=== PATIENT | female | born 1950 | race Caucasian/White ===

== ENCOUNTER 2018-01-10 11:09 | Emergency (ER) | payer MEDICARE ==
--- NOTE | 2018-01-10 12:54 | ED ---
Abdominal Pain HPI - General Chief Complaint: Abdominal Pain Stated Complaint: CONSTIPATION Time Seen by Provider: 01/10/18 12:25 Source: patient, RN notes reviewed, old records reviewed Mode of arrival: ambulatory Limitations: no limitations - History of Present Illness Initial Comments: Patient is a 67-year-old female presents emergency Department chief complaint of constipation. She reports she cannot last time she had a bowel movement. Patient states that she used to magnesium citrate bottles at home this week and reports that she's only had clear or watery stool. Patient states that she feels like there is some vague obstructing. Patient reports that she has had no vomiting. Denies any significant abdominal pain with this. She reports she has has a lower pressure. Denies any urinary symptoms. No fevers or chills. - Related Data Home Medications Medication Instructions Recorded Confirmed ALPRAZolam [Xanax] 1 mg PO QID PRN 01/10/18 01/10/18 DULoxetine HCL [Cymbalta] 120 mg PO DAILY 01/10/18 01/10/18 Hydrochlorothiazide [Hydrodiuril] 25 mg PO DAILY 01/10/18 01/10/18 Pravastatin Sodium [Pravachol] 40 mg PO HS 01/10/18 01/10/18 QUEtiapine FUMARATE [SEROquel] 200 mg PO HS 01/10/18 01/10/18 metFORMIN HCL ER [Glucophage Xr] 500 mg PO DAILY 01/10/18 01/10/18 Previous Rx's Medication Instructions Recorded Bisacodyl [Dulcolax] 10 mg PO ONCE #20 tablet. 01/10/18 Polyethylene Glycol 3350 [Miralax] 17 gm PO DAILY #30 packet 01/10/18 Allergies Allergy/AdvReac Type Severity Reaction Status Date / Time No Known Allergies Allergy Verified 01/10/18 12:55 Review of Systems ROS Statement: Those systems with pertinent positive or pertinent negative responses have been documented in the HPI. ROS Other: All systems not noted in ROS Statement are negative. Past Medical History Past Medical History: Asthma, Diabetes Mellitus, Hypertension History of Any Multi-Drug Resistant Organisms: None Reported Past Surgical History: Hysterectomy, Joint Replacement Additional Past Surgical History / Comment(s): neck surgery Past Psychological History: Depression Smoking Status: Former smoker Past Alcohol Use History: None Reported Past Drug Use History: None Reported General Exam - General Exam Comments Initial Comments: Well-appearing alert and oriented 67-year-old female. No acute distress. Limitations: no limitations General appearance: alert, in no apparent distress Head exam: Present: atraumatic, normocephalic, normal inspection Eye exam: Present: normal appearance, PERRL, EOMI. Absent: scleral icterus, conjunctival injection, periorbital swelling ENT exam: Present: normal exam, mucous membranes moist Neck exam: Present: normal inspection. Absent: tenderness, meningismus, lymphadenopathy Respiratory exam: Present: normal lung sounds bilaterally. Absent: respiratory distress, wheezes, rales, rhonchi, stridor Cardiovascular Exam: Present: regular rate, normal rhythm, normal heart sounds. Absent: systolic murmur, diastolic murmur, rubs, gallop, clicks GI/Abdominal exam: Present: soft, normal bowel sounds. Absent: distended, tenderness, guarding, rebound, rigid Rectal exam: Present: normal inspection, normal rectal tone, other (No evidence of fecal impaction.). Absent: fecal impaction Extremities exam: Present: normal inspection, full ROM, normal capillary refill. Absent: tenderness, pedal edema, joint swelling, calf tenderness Back exam: Present: normal inspection Neurological exam: Present: alert, oriented X3, CN II-XII intact Course Vital Signs 01/10/18 01/10/18 11:14 15:31 Temperature 98.0 F 98.1 F Pulse Rate 80 74 Respiratory 20 17 Rate Blood Pressure 129/66 127/82 O2 Sat by Pulse 100 100 Oximetry Medical Decision Making - Medical Decision Making 67-year-old female presents to respond to bleed and pass patient. She feels that there is something obstructing. Had to magnesium citrate at home and feels like she is just passing stool around the hard stool. X-ray was completed. No acute bowel gas pattern. Patient still concerned about the constipation. Discussed he can do here back enema. I also on digital rectal exam did not feel any concern for fecal impaction. She had a molasses enema. She did have some bowel movement but is just watery. Discussed at this time we can put the patient on miralax daily and use daily stool softeners. She needs to follow-up with her PCP. Discussed that I have no significant evidence for fecal impaction or severe constipation this time. Disposition Clinical Impression: Constipation Disposition: HOME SELF-CARE Condition: Good Instructions: Constipation (ED), Obstipation (ED) Additional Instructions: Patient advised follow-up with primary care provider. Continue with MiraLAX and stool softener. Return to the emergency department if any alarming signs or symptoms occur. Prescriptions: Bisacodyl [Dulcolax] 10 mg PO ONCE #20 tablet. Polyethylene Glycol 3350 [Miralax] 17 gm PO DAILY #30 packet Is patient prescribed a controlled substance at d/c from ED?: No If prescribed controlled substance>3 days was MAPS reviewed?: No When asked, does pt state using other controlled substances?: No Referrals: Klaus Yoder MD [Primary Care Provider] - 1-2 days Time of Disposition: 15:08
--- NOTE | 2018-01-10 12:58 | XR ---
EXAMINATION TYPE: XR KUB DATE OF EXAM: 01/10/2018 12:51 PM CLINICAL HISTORY: Constipation and abdominal pain. TECHNIQUE: Two Upright KUB images of the abdomen are obtained. COMPARISON: None. FINDINGS: Gas is seen in nondistended stomach. Scattered gas is seen in non-distended small bowel loo ps. Gas and fecal material is seen in non-distended colon. There is small left pleural effusion and associated left basilar atelectasis and/or infiltrate suspec kimani. Metallic hardware from right hip arthroplasty is present. There is prominent right L2-L3 spur. T here is moderate multilevel spurring in the lower lumbar spine. There is moderate joint space loss an d mild to moderate spurring and left hip joint. Vascular calcification in the bilateral pelvis is fel t present. IMPRESSION: Overall nonobstructive bowel gas pattern.
[2018-01-10] MEDS: DOCUSATE 283 MG/5 ML ENEMA RECTAL STA ×2 (13:06→13:41)
[2018-01-10 15:31] VITALS: BP 127/82; PULSE 74; RESP 17; TEMP 98.1
== END 2018-01-10 15:31 | disposition home or self-care (01) ==
LOC: EC 11:09
DX: K59.00 Constipation, unspecified (principal); E11.9 Type 2 diabetes mellitus without complications; I10 Essential (primary) hypertension; F32.9 Major depressive disorder, single episode, unspecified; Z87.891 Personal history of nicotine dependence; Z79.84 Long term (current) use of oral hypoglycemic drugs; Z79.899 Other long term (current) drug therapy
CPT/HCPCS: 74018; 99284

== ENCOUNTER → 2018-01-30 | Outpatient (CLI) | payer MEDICARE ==
--- NOTE | 2018-01-31 18:24 | BD ---
EXAMINATION TYPE: Axial Bone Density DATE OF EXAM: 01/30/2018 COMPARISON: NONE CLINICAL HISTORY: Height: 65.5 IN Weight: 234 LBS FRAX RISK QUESTIONS: Family History (Parent hip fracture): YES MOTHER History of Fracture in Adulthood: YES RT PATELLA AGE 65 Secondary Osteoporosis: 3. Menopause before 45: YES AGE 46 RISK FACTORS HISTORY OF: Surgery to Hip(right): RT HIP When: 2003 Active: YES Postmenopausal woman: AGE 46 MEDICATIONS: Thyroid Medications: YES Which medication: Synthroid How Lon WEEKS Additional Medications: VIT D, SYNTHROID, HCTZ, METFORMIN, CELEXA, LISINOPRIL, SEROQUEL, PRAVASTATIN, BABY ASPIRIN, EXAM MEASUREMENTS: Bone mineral densitometry was performed using the [employer] System. Bone mineral density as measured about the Lumbar spine is: ----- L1-L4(G/cm2): 1.702 T Score Values are as follows: ----- L2: 4.4 ----- L3: 4.9 ----- L4: 4.8 ----- L1-L4: 4.4 Bone mineral density BASELINE Bone mineral density about the L hip (g/cm2): 0.937 T Score values are as follows: -----L Neck: -0.7 -----L Total: 0.9 Bone mineral density BASELINE IMPRESSION: Normal (Values between +1 and -1 indicate normal bone mass). Consider repeating this study in 5 year s or sooner if there is some new clinical indication. NOTE: T-SCORE=SD OF THE YOUNG ADULT MEAN.
--- NOTE | 2018-02-04 13:18 | MM ---
Reason for exam: screening (asymptomatic). Last mammogram was performed 6 years and 7 months ago. History: Patient is postmenopausal and history of other cancer. Physical Findings: A clinical breast exam by your physician is recommended on an annual basis and results should be correlated with mammographic findings. MG 3D Screening Mammo W/Cad Bilateral CC and MLO view(s) were taken. Prior study comparison: March 02, 2015, mammogram. June 19, 2011, bilateral screening mammogram free. Finding: There are stable round, diffuse/scattered and grouped calcifications in both breasts. No significant changes in finding since March 02, 2015 and June 19, 2011. ASSESSMENT: Benign, BI-RAD 2 RECOMMENDATION: Routine screening mammogram of both breasts in 1 year.
== END | disposition home or self-care (01) ==
LOC: RADMAMWWP 12:45
PROVIDERS: ATTEND Family Medicine
DX: Z12.31 Encounter for screening mammogram for malignant neoplasm of breast (principal); Z13.820 Encounter for screening for osteoporosis
CPT/HCPCS: 77063; 77067; 77080

== ENCOUNTER → 2019-04-24 | Outpatient (CLI) | payer MEDICARE, BC ==
--- NOTE | 2019-04-24 10:46 | MM ---
Reason for exam: screening (asymptomatic). Last mammogram was performed 1 year and 3 months ago. History: Patient is postmenopausal and history of other cancer. Physical Findings: A clinical breast exam by your physician is recommended on an annual basis and results should be correlated with mammographic findings. MG 3D Screening Mammo W/Cad Bilateral CC and MLO view(s) were taken. Prior study comparison: January 30, 2018, bilateral MG 3d screening mammo w/cad. March 02, 2015, mammogram. There are scattered fibroglandular densities. Benign appearing bilateral calcifications. No suspicious abnormality. No significant changes when compared with prior studies. ASSESSMENT: Benign, BI-RAD 2 RECOMMENDATION: Routine screening mammogram of both breasts in 1 year.
== END ==
LOC: RADMAMWWP 07:23
PROVIDERS: ATTEND Family Medicine
DX: Z12.31 Encounter for screening mammogram for malignant neoplasm of breast (principal)
CPT/HCPCS: 77063; 77067